=== PATIENT | male | born 1980 | race Caucasian/White ===

== ENCOUNTER → 2023-01-20 | Outpatient (CLI) | payer SELFPAY ==
--- NOTE | 2023-01-20 07:30 | VAS_PTH ---
PATIENT: [facility]UTH[facility] HARO [id number] AGE/SX: 42/M ROOM: RE01/20/[address]: Dr. Jacob Wilson MD : 1980 BED: DIS: 01/20/2023 SPEC #: [id number] RECD: 01/20/23 10:58 STATUS: PAULO REZahira #: [id number] LAVELL: 01/20/23 07:[address]: Jacob Wilson DEPT: SURGICAL PATHOLOGY RECD BY: Eva Franklin ENTERED: 01/20/23 10:58 SP TYPE: VAS OTHR DR: Nellie Primary [facility] Phys Tissues: A - Vas deferens, NOS B - Vas deferens, NOS Procedures: Surgery Specimen Level II HEADER OPERATION: Bilateral partial vasectomy PRE-OP DIAGNOSIS: Sterilization TISSUE SUBMITTED: A. Right vas deferens, B. Left vas deferens MICROSCOPIC DIAGNOSIS A. Right vas deferens, partial vasectomy: Completely transected segment of vas deferens, no pathologic diagnosis. B. Left vas deferens, partial vasectomy: Completely transected segment of vas deferens, no pathologic diagnosis. SJ: 01/21/2023 MICROSCOPIC DESCRIPTION Slides are reviewed. GROSS DESCRIPTION A - Received is one container designated right vas deferens. The specimen consists of a tubular segment of marin soft tissue measuring 1.5 cm in length and 0.3 cm in diameter. The specimen is serially sectioned and submitted entirely in one cassette. The entire specimen is submitted in one cassette. It will be sectioned at the time of embedding. B - Received is one container designated left vas deferens. The specimen consists of a tubular segment of marin soft tissue measuring 1.6 cm in length and 0.3 cm in diameter. The specimen is serially sectioned and submitted entirely in one cassette. / ADRIANNE:daphnie 01/20/23 TC:4 CPT: 40057 x2
== END | disposition home or self-care (01) ==
LOC: LABSPEC 10:25
PROVIDERS: Referring Provider Surgery; Visit Provider Surgery
DX: Z30.2 Encounter for sterilization (principal)
CPT/HCPCS: 88302